=== PATIENT | male | born 1965 | race Caucasian/White ===

== ENCOUNTER 2024-01-04 06:22 | Inpatient (IN) ==
[2024-01-04 09:56] LABS: ABS Eosinophils 0.2 10^3/uL (0.0-0.5); ABS Lymphocytes 1.3 10^3/uL (1.0-4.8); ABS Monocytes 0.7 10^3/uL (0.0-1.1); ABS Neutrophils 5.1 10^3/uL (1.5-7.6); ABS Nucleated RBC 0.01 10^3/ul; Eosinophil % 2.5 %; Hematocrit 42.8 % (38-53); Hemoglobin 14.5 g/dL (13.2-16.3); Lymphocyte % 17.4 %; Mean Corpuscular Hemoglobin 31.3 pg (27-33); Mean Corpuscular Hgb Conc 33.9 g/dL (31-36); Mean Corpuscular Volume 92.3 fL (80-97); Mean Platelet Volume 8.7 fL (7.5-11.2); Nucleated Red Blood Cells % 0.1 %/100WBC (0.0-0.8); Platelet Count 245 10^3/uL (150-450); Red Blood Count 4.63 10^6/uL (4.06-5.63); Red Cell Distribution Width 13.6 % (12-17); White Blood Count 7.2 10^3/uL (3.6-10.2)
[2024-01-04 10:06] LABS: Urine Appearance Turbid; Urine Bilirubin Negative (Negative); Urine Blood Negative (Negative); Urine Color Yellow; Urine Glucose Negative (Negative); Urine Ketones Negative (Negative); Urine Nitrite Negative (Negative); Urine Protein Trace (Negative); Urine Specific Gravity 1.019 (1.002-1.030); Urine Urobilinogen Negative (Negative); Urine pH 5.5 (5.0-8.0)
[2024-01-04 10:22] LABS: Albumin/Globulin Ratio 1.6 (1-3); C Reactive Protein 91.57 mg/L (<8.01); Calcium 9.3 mg/dL (8.6-10.3); Creatinine, Serum 1.08 mg/dL (0.67-1.17); Globulin 2.5 g/dL (2-4); Potassium 4.7 mmol/L (3.5-5.0); Total Bilirubin 0.5 mg/dL (0.2-1.0); Total Protein 6.5 g/dL (6.4-8.9); eGFR CKD-EPI 78.6 (>60)
[2024-01-04 10:51] LABS: Urine Bacteria Absent /HPF (Absent); Urine Red Blood Cell Absent /HPF (0-Trace); Urine Squamous Epithelial Cell Present /HPF (Absent); Urine White Blood Cell 2+(11-20/hpf) /HPF (0-Trace)
[2024-01-04] MEDS: Piperacillin/Tazobac 3.375 BAG 3.375 GM/100 ML BAG IV ONE (12:59)
[2024-01-04] MEDS: cefTRIAXone 1 gm/50 mL D5W 1 GM/50 ML BAG IV ONE (13:30)
[2024-01-04] MEDS ORDERED: Vancomycin per Pharmacy 1 EA NOTE FOLLOW UP SCH (14:00)
[2024-01-04] MEDS ORDERED: Zosyn per Pharmacy NOTE FOLLOW UP SCH (14:00)
[2024-01-04] MEDS: Iohexol 300 (CONTRAST) 10 ML SDV IV SCH (14:17)
[2024-01-04] MEDS: Vancomycin 2,000 MG in NS 0.9% 500 ml BAG 500 ML IVPB ONE (14:42)
[2024-01-04] MEDS: Enoxaparin 40 MG/0.4 ML SYR SUBCUT SCH (14:44)
[2024-01-04] MEDS: ZOSYN 3.375 GM Q8H per EXTENDED INFUSION IV SCH (18:16)
[2024-01-04] MEDS: Isosorbide Mononit ER 30mg TAB PO SCH (21:26)
[2024-01-05] MEDS: Vancomycin 1,500 MG in NS 0.9% 250 ml 250 ML IVPB SCH (05:01)
[2024-01-05] MEDS: Aspirin EC 81 mg TAB.EC (enteric coated) PO SCH (08:03)
[2024-01-05 08:40] LABS: ABS Eosinophils 0.2 10^3/uL (0.0-0.5); ABS Monocytes 0.4 10^3/uL (0.0-1.1); ABS Neutrophils 2.5 10^3/uL (1.5-7.6); Eosinophil % 5.2 %; Hematocrit 38.9 % (38-53); Hemoglobin 13.5 g/dL (13.2-16.3); Lymphocyte % 23.2 %; Mean Corpuscular Hemoglobin 31.4 pg (27-33); Mean Corpuscular Hgb Conc 34.6 g/dL (31-36); Mean Corpuscular Volume 90.7 fL (80-97); Mean Platelet Volume 8.6 fL (7.5-11.2); Nucleated Red Blood Cells % 0.1 %/100WBC (0.0-0.8); Platelet Count 233 10^3/uL (150-450); Red Blood Count 4.28 10^6/uL (4.06-5.63); Red Cell Distribution Width 13.2 % (12-17); White Blood Count 4.1 10^3/uL (3.6-10.2)
[2024-01-05 09:28] LABS: Calcium 8.6 mg/dL (8.6-10.3); Creatinine, Serum 0.92 mg/dL (0.67-1.17); Magnesium 1.9 mg/dL (1.9-2.7); Potassium 4.4 mmol/L (3.5-5.0); eGFR CKD-EPI 95.2 (>60)
[2024-01-06] MEDS: Iodixanol (CONTRAST) 320 MG/ML 100 ML SDV IV ONE (11:25)
[2024-01-06] MEDS: Vancomycin Trough Check NOTE FOLLOW UP ONE (16:42)
[2024-01-06] MEDS ORDERED: Bupivacaine 0.25% SDV 30 ML ONE (17:21)
[2024-01-06] MEDS ORDERED: Lidocaine 1% VIAL 10 MG/ML 30 ML VIAL ONE (17:21)
[2024-01-06] MEDS ORDERED: Bacitracin OINTMENT TUBE ONE (17:21)
[2024-01-06] MEDS ORDERED: Propofol 10 MG/ML 20 ML BTL ONE ×3 (17:27→19:31)
[2024-01-06] MEDS ORDERED: Rocuronium 50 mg VIAL 10 mg/ml 5 ml VIAL (50 mg) ONE (17:27)
[2024-01-06] MEDS ORDERED: fentaNYL 100 mcg/2 ml 50 MCG/ML VIAL ONE ×2 (17:27→18:41)
[2024-01-06] MEDS ORDERED: Lidocaine 2% PF 5 ML VIAL ONE (17:27)
[2024-01-06] MEDS ORDERED: Midazolam 2 mg/2 ml VIAL 1 mg/ml 2 ml VIAL (2 mg) ONE (17:27)
[2024-01-06] MEDS: Hyaluronidase HUMAN 15 UNIT in Sodium Chloride 0.9% 0.9 ML INTRADERM ONE (17:46)
[2024-01-06] MEDS ORDERED: Dexamethasone IV 4 MG/ML VIAL 1 ml VIAL ONE (18:34)
[2024-01-06] MEDS ORDERED: Ondansetron 4 mg VIAL 2 MG/ML 2 ml VIAL ONE (18:34)
[2024-01-06] MEDS ORDERED: Sodium Chloride 0.9% 10 ML ONE (19:17)
[2024-01-06] MEDS ORDERED: oxyCODONE/Acetamin 10/325(NF) TAB PO PRN (20:29)
[2024-01-06] MEDS: ZOSYN 3.375 GM Q8H per EXTENDED INFUSION IV SCH (22:46)
[2024-01-07] MEDS: Senna TAB 8.6 mg TAB PO PRN (00:14)
[2024-01-07 01:05] LABS: Creatinine, Serum 1.32 mg/dL (0.67-1.17); eGFR CKD-EPI 61.7 (>60)
[2024-01-07 01:33] LABS: High Sensitivity Troponin 1 Hr 15 pg/mL (<20)
[2024-01-07 06:35] LABS: ABS Lymphocytes 0.7 10^3/uL (1.0-4.8); ABS Monocytes 0.3 10^3/uL (0.0-1.1); ABS Neutrophils 7.6 10^3/uL (1.5-7.6); Eosinophil % 0.1 %; Hematocrit 40.1 % (38-53); Hemoglobin 13.5 g/dL (13.2-16.3); Lymphocyte % 8.3 %; Mean Corpuscular Hemoglobin 30.8 pg (27-33); Mean Corpuscular Hgb Conc 33.7 g/dL (31-36); Mean Corpuscular Volume 91.4 fL (80-97); Mean Platelet Volume 8.9 fL (7.5-11.2); Platelet Count 346 10^3/uL (150-450); Red Blood Count 4.38 10^6/uL (4.06-5.63); Red Cell Distribution Width 13.1 % (12-17); White Blood Count 8.6 10^3/uL (3.6-10.2)
[2024-01-07 07:00] LABS: Calcium 8.8 mg/dL (8.6-10.3); Creatinine, Serum 1.21 mg/dL (0.67-1.17); Potassium 4.8 mmol/L (3.5-5.0); eGFR CKD-EPI 68.5 (>60)
[2024-01-07] MEDS: Ranolazine 500 mg TAB ER (NF) PO SCH (09:26)
[2024-01-08 08:29] VITALS: BP 120/78
== END 2024-01-08 11:15 | disposition home or self-care (01) | DRG 383 ==
LOC: EDHOLD 06:22 → ED 06:22 → SUATTDRO 12:50 → EDHOLD 01-05 15:17 → MED 01-06 12:25
PROVIDERS: ADMIT Hospitalist; ATTEND Internal Medicine